=== PATIENT | male | born 1965 | race Two or more races ===

== ENCOUNTER 2016-03-30 22:16 | Emergency (ER) | payer MEDICAID ==
[~2016-03-30] VITALS: Ht 167.6 cm; Wt 97.5 kg
[~2016-03-30 22:16] MED LIST: ESOM40CA39 PO; FOLI1TAB6 PO; FURO40TA4 PO; LACT10SO44 PO; PROP60CA8 PO; SPIR25TA89 PO
[2016-03-30] MEDS ORDERED: ONDANSETRON HCL 4 MG/2 ML VIAL IV ONE (23:00)
[2016-03-30] MEDS ORDERED: HYDROmorphone HCL 2 MG/ML VL IV ONE (23:00)
[2016-03-31] MEDS ORDERED: HYDROmorphone HCL 2 MG/ML VL IV ONE (01:45)
[2016-03-31 02:00] VITALS: BP 115/72
== END 2016-03-31 02:13 | disposition home or self-care (01) ==
LOC: EDBD 22:16 → ER 22:19
DX: S82.401A Unspecified fracture of shaft of right fibula, initial encounter for closed fracture (principal); E11.9 Type 2 diabetes mellitus without complications; I10 Essential (primary) hypertension; K76.9 Liver disease, unspecified; V49.49XA Driver injured in collision with other motor vehicles in traffic accident, initial encounter; Y93.89 Activity, other specified; Y99.8 Other external cause status; Y92.410 Unspecified street and highway as the place of occurrence of the external cause
CPT/HCPCS: 29515; 70450; 72125; 72128; 73590; 96374; 96375; 96376; 99284; J1170; J2405